=== PATIENT | male | born 1970 | race African-American/Black ===

== ENCOUNTER 2017-06-30 02:07 | Emergency (ER) | payer OTHER ==
[~2017-06-30] VITALS: Ht 180.3 cm; Wt 91.6 kg
[2017-06-30 02:20] VITALS: BP 142/90
== END 2017-06-30 03:23 | disposition left against medical advice (07) ==
LOC: ER 02:17
DX: R10.9 Unspecified abdominal pain (principal); Z53.21 Procedure and treatment not carried out due to patient leaving prior to being seen by health care provider